=== PATIENT | female | born 1980 | race Caucasian/White ===

== ENCOUNTER 2022-03-03 10:41 | Emergency (ER) | payer SELFPAY ==
[~2022-03-03] VITALS: Ht 156.2 cm; Wt 71.3 kg
[2022-03-03 10:43] VITALS: BP 132/84
--- NOTE | 2022-03-03 10:52 | NUR ---
PT AMB TO BED 11.
--- NOTE | 2022-03-03 11:20 | NUR ---
41YO FEMALE PT C/O MILD BRIGHT RED VAGINAL BLEEDING xYESTERDAY. REPORTS POSITIVE AT HOME TEST xYESTERDAY. DENIES N/V/D, CHEST/ ABDOMINAL PAIN, SOB, FEVER. PT AAOX4, RESPIRATIONS EVEN AND UNLABORED. HX: DENIES NKA
--- NOTE | 2022-03-03 12:09 | NUR ---
blood drawn. walked and handed to lab
[2022-03-03 12:19] LABS: APPEARANCE,URINE HAZY (CLEAR); BILIRUBIN,URINE NEGATIVE (NEGATIVE); BLOOD, URINE 3+ (NEGATIVE); COLOR,URINE RED (YELLOW); LEUKOCYTE ESTERASE ,URINE 1+ (NEGATIVE); NITRITE, URINE NEGATIVE (NEGATIVE); UGLUCOSE NEGATIVE (NEGATIVE)
[2022-03-03 12:25] LABS: BASOPHILS % (AUTO) 0.5 % (0.0-2.0); EOSINOPHILS # (AUTO) 0.2 K/uL (0-0.4); EOSINOPHILS % (AUTO) 2.7 % (0.0-4.0); HEMATOCRIT 38.4 % (36-48); LYMPHOCYTES # (AUTO) 1.1 K/uL (2.5-16.5); LYMPHOCYTES % (AUTO) 19.9 % (20.5-51.1); MEAN CORPUSCULAR HEMOGLOBIN 30 pg (27-31); MEAN CORPUSCULAR HGB CONC 34 g/dL (33-37); MEAN CORPUSCULAR VOLUME 88.9 fL (80-94); MONOCYTES # (AUTO) 0.4 K/uL (0.8-1.0); MONOCYTES % (AUTO) 6.4 % (1.7-9.3); NEUTROPHILS % (AUTO) 70.5 % (42.2-75.2); PLATELET COUNT (AUTO) 195 K/uL (140-450); RED BLOOD CELL COUNT(AUTO) 4.32 MIL/uL (4.20-5.40); WHITE BLOOD COUNT (AUTO) 5.7 K/uL (4.8-10.8)
[2022-03-03 12:33] LABS: OTHER CASTS, URINE None Seen /LPF (None Seen)
[2022-03-03 12:33] LABS: ANION GAP 12.8 (8-16); CARBON DIOXIDE 25.8 mmol/L (21-32); CREATININE 0.7 mg/dL (0.6-1.3); POTASSIUM 3.6 mmol/L (3.5-5.1)
--- NOTE | 2022-03-03 13:25 | NUR ---
US AT BEDSIDE
[2022-03-03] MEDS ORDERED: ACET-10509 PO (16:10)
[2022-03-03 16:35] VITALS: BP 121/70
--- NOTE | 2022-03-03 16:35 | NUR ---
Patient discharged with v/s stable. Written and verbal after care instructions FOR ABDOMINAL PAIN DURING AND ECTOPIC given and explained. Patient alert, oriented and verbalized understanding of instructions. Ambulatory with steady gait. All questions addressed prior to discharge. ID band removed. Patient advised to follow up with PMD. Rx of TYLENOL XTRA STREGNTH given. Opportunity to ask questions provided and answered.
--- NOTE | 2022-03-03 16:45 | NUR ---
The patient's care was reviewed and supervised by Liz Hinkle, RN, RN.
[2022-03-03] MEDS ORDERED: CEPH-588 PO (17:23)
== END 2022-03-03 16:35 | disposition home or self-care (01) ==
LOC: MED 10:41
DX: O20.0 Threatened abortion (principal); O23.41 Unspecified infection of urinary tract in pregnancy, first trimester; N39.0 Urinary tract infection, site not specified; Z3A.01 Less than 8 weeks gestation of pregnancy
CPT/HCPCS: 36415; 76801; 80048; 81001; 81025; 84702; 85025; 87086; 99285; Q0092

== ENCOUNTER 2022-03-08 09:22 | Emergency (ER) | payer SELFPAY ==
[~2022-03-08] VITALS: Ht 156.5 cm; Wt 71.8 kg
[~2022-03-08 09:22] MED LIST: ACET-10509 PO; CEPH-588 PO
[2022-03-08 09:42] VITALS: BP 127/78
--- NOTE | 2022-03-08 10:44 | NUR ---
BIB SELF C/O VAGINAL BLEEDING X 2 DAYS. 7 WEEKS .DENIES N/V/D; SKIN IS PINK/WARM/DRY; AAOX4 WITH EVEN AND STEADY GAIT; LUNGS CLEAR BL; HR EVEN AND REGULAR; PT DENIES ANY FEVER, CP, SOB, OR COUGH AT THIS TIME; PATIENT STATES PAIN OF 0/10 AT THIS TIME.
--- NOTE | 2022-03-08 11:09 | NUR ---
PT AMBULATED TO ER BED 4
--- NOTE | 2022-03-08 11:22 | NUR ---
41 Y/O F BIB SELF C/O VAGINAL BLEEDING X 2 DAYS. 7 WEEKS . THIS IS PT 5 . NKA OR PMH
[2022-03-08 11:47] LABS: BASOPHILS # (AUTO) 0.1 K/uL (0.00-0.22); BASOPHILS % (AUTO) 0.6 % (0.0-2.0); EOSINOPHILS # (AUTO) 0.1 K/uL (0-0.4); EOSINOPHILS % (AUTO) 0.7 % (0.0-4.0); HEMATOCRIT 40.5 % (36-48); HEMOGLOBIN 13.8 g/dL (12.0-16.0); LYMPHOCYTES # (AUTO) 0.9 K/uL (2.5-16.5); LYMPHOCYTES % (AUTO) 10.3 % (20.5-51.1); MEAN CORPUSCULAR HEMOGLOBIN 30 pg (27-31); MEAN CORPUSCULAR HGB CONC 34 g/dL (33-37); MEAN CORPUSCULAR VOLUME 89.2 fL (80-94); MONOCYTES # (AUTO) 0.4 K/uL (0.8-1.0); MONOCYTES % (AUTO) 4.3 % (1.7-9.3); NEUTROPHILS # (AUTO) 7.6 K/uL (1.8-7.7); NEUTROPHILS % (AUTO) 84.1 % (42.2-75.2); PLATELET COUNT (AUTO) 228 K/uL (140-450); RED BLOOD CELL COUNT(AUTO) 4.54 MIL/uL (4.20-5.40); RED CELL DISTRIBUTION WIDTH 13.3 % (11.6-13.7); WHITE BLOOD COUNT (AUTO) 9.1 K/uL (4.8-10.8)
--- NOTE | 2022-03-08 13:18 | NUR ---
DR HIGHTOWER AT BEDSIDE.
[2022-03-08] MEDS ORDERED: ACETAMINOPHEN EXTRA STRENGTH 500 MG TAB PO ONE (13:25)
[2022-03-08] MEDS ORDERED: IBUP-1842 PO (13:29)
[2022-03-08 14:35] VITALS: BP 122/68
== END 2022-03-08 14:35 | disposition home or self-care (01) ==
LOC: MED 09:22
DX: O03.9 Complete or unspecified spontaneous abortion without complication (principal); Z79.899 Other long term (current) drug therapy
CPT/HCPCS: 36415; 76817; 81002; 81025; 84702; 85025; 86900; 86901; 99284; Q0092

== ENCOUNTER 2022-10-30 07:18 | Emergency (ER) | payer MEDICAID ==
[~2022-10-30] VITALS: Ht 160 cm; Wt 74.4 kg
[~2022-10-30 07:18] MED LIST changes: +IBUP-1842 PO
[2022-10-30 07:23] VITALS: BP 123/70
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
[2022-10-30 08:00] LABS: APPEARANCE,URINE CLEAR (CLEAR); BILIRUBIN,URINE NEGATIVE (NEGATIVE); BLOOD, URINE 2+ (NEGATIVE); COLOR,URINE YELLOW (YELLOW); LEUKOCYTE ESTERASE ,URINE TRACE (NEGATIVE); NITRITE, URINE NEGATIVE (NEGATIVE); PH,URINE 6.5 (5.0-9.0); UGLUCOSE NEGATIVE (NEGATIVE)
[2022-10-30 08:10] LABS: RBC,URINE 0-5 /HPF (0-5)
--- NOTE | 2022-10-30 08:20 | NUR ---
LACING OPERATOR AT BEDSIDE.
[2022-10-30 08:25] LABS: BASOPHILS % (AUTO) 0.6 % (0.0-2.0); EOSINOPHILS # (AUTO) 0.1 K/uL (0-0.4); EOSINOPHILS % (AUTO) 1.7 % (0.0-4.0); HEMATOCRIT 40.9 % (36-48); HEMOGLOBIN 13.8 g/dL (12.0-16.0); LYMPHOCYTES # (AUTO) 1.3 K/uL (2.5-16.5); LYMPHOCYTES % (AUTO) 18.3 % (20.5-51.1); MEAN CORPUSCULAR HEMOGLOBIN 30 pg (27-31); MEAN CORPUSCULAR HGB CONC 34 g/dL (33-37); MEAN CORPUSCULAR VOLUME 89.3 fL (80-94); MONOCYTES # (AUTO) 0.4 K/uL (0.8-1.0); MONOCYTES % (AUTO) 5.6 % (1.7-9.3); NEUTROPHILS # (AUTO) 5.1 K/uL (1.8-7.7); NEUTROPHILS % (AUTO) 73.8 % (42.2-75.2); PLATELET COUNT (AUTO) 216 K/uL (140-450); RED BLOOD CELL COUNT(AUTO) 4.58 MIL/uL (4.20-5.40); RED CELL DISTRIBUTION WIDTH 13.1 % (11.6-13.7); WHITE BLOOD COUNT (AUTO) 6.9 K/uL (4.8-10.8)
--- NOTE | 2022-10-30 10:58 | NUR ---
Patient discharged with v/s stable. Written and verbal after care instructions given and explained. Patient verbalized understanding. Ambulatory with steady gait. All questions addressed prior to discharge. Advised to follow up with PMD.
[2022-10-30 11:00] VITALS: BP 106/47
== END 2022-10-30 11:00 | disposition home or self-care (01) ==
LOC: MED 07:18
DX: O9A.211 Injury, poisoning and certain other consequences of external causes complicating pregnancy, first trimester (principal); O20.0 Threatened abortion; Z3A.08 8 weeks gestation of pregnancy; Z79.899 Other long term (current) drug therapy; V89.2XXA Person injured in unspecified motor-vehicle accident, traffic, initial encounter; Y93.89 Activity, other specified; Y92.89 Other specified places as the place of occurrence of the external cause; Y99.8 Other external cause status
CPT/HCPCS: 36415; 76817; 81001; 84702; 85025; 99284; Q0092

== ENCOUNTER 2022-11-01 05:25 | Emergency (ER) | payer MEDICAID ==
[~2022-11-01] VITALS: Ht 162.6 cm; Wt 72.6 kg
[2022-11-01 05:39] VITALS: BP 112/72
--- NOTE | 2022-11-01 05:59 | NUR ---
pt to bed #8
--- NOTE | 2022-11-01 06:00 | NUR ---
RECEIVED IN BED 8 FOR RECHECK AFTER BEING SEEN HERE 3 DAYS FOR VAGNAL BLEED. PT CONTINUES WITH C/O SPOTTING AND IS REQUESTING REPEAT HCG
--- NOTE | 2022-11-01 06:03 | NUR ---
DR MASTERS AT BEDSIDE FOR EXAM
[2022-11-01 07:00] VITALS: BP 112/72
== END 2022-11-01 07:00 | disposition home or self-care (01) ==
LOC: MED 05:25
DX: O46.92 Antepartum hemorrhage, unspecified, second trimester (principal); Z3A.24 24 weeks gestation of pregnancy
CPT/HCPCS: 36415; 84702; 99283